=== PATIENT | female | born 1960 | race Caucasian/White ===

== ENCOUNTER 2017-02-25 10:04 | Emergency (ER) | payer OTHER ==
[~2017-02-25] VITALS: Ht 157.5 cm; Wt 50.0 kg
[2017-02-25 10:11] VITALS: Ht 157.5 cm; Wt 50.0 kg
[2017-02-25 11:42] LABS: URINE BLOOD (Dip) POC Negative (NEGATIVE)
[2017-02-25 11:48] LABS: ADD SCAN DIFF NO
[2017-02-25 11:52] LABS: BASOPHILS % 0.5 % (0.0-2.0); EOSINOPHILS # 0.1 10^3/ul (0.0-0.5); EOSINOPHILS % 1.7 % (0.0-7.0); HEMATOCRIT 45.9 % (37.0-47.0); HEMOGLOBIN 15.6 g/dl (12.0-16.0); LYMPHOCYTES # 1.4 10^3/ul (0.8-2.9); LYMPHOCYTES % 33.2 % (15.0-51.0); MEAN CORPUSCULAR VOLUME 91.3 fl (82.0-101.0); MEAN PLATELET VOLUME 9.7 fl (7.4-10.4); MONOCYTE # 0.5 10^3/ul (0.3-0.9); MONOCYTES % 12.1 % (0.0-11.0); NEUTROPHIL # 2.2 10^3/ul (1.6-7.5); PLATELET COUNT 251 10^3/UL (140-415); RED BLOOD COUNT 5.03 10^6/ul (4.20-5.40); WHITE BLOOD COUNT 4.1 10^3/ul (4.8-10.8)
[2017-02-25 12:15] LABS: ALBUMIN 4.6 g/dl (3.3-4.9); ALBUMIN/GLOBULIN RATIO 1.39; BILIRUBIN,INDIRECT 0.5 mg/dl (0-1.1); BILIRUBIN,TOTAL 0.5 mg/dl (0.2-1.3); CALCIUM 9.8 mg/dl (8.4-10.2); CREATININE 0.83 mg/dl (0.44-1.00); POTASSIUM 5.2 mmol/L (3.5-5.1); TOTAL PROTEIN 7.9 g/dl (6.1-8.1)
[2017-02-25] MEDS ORDERED: CIPR500T4 PO (12:32)
[2017-02-25] MEDS ORDERED: METR500T PO (12:32)
[2017-02-25] MEDS ORDERED: BISM262O23 PO (12:32)
--- NOTE | 2017-02-25 12:38 | ERD ---
ER Documentation Chief Complaint Date/Time DATE: 02/25/17 TIME: 12:35 Chief Complaint diarrhea x 6 weeks , denies and abd pain , no vomiting HPI This 56-year-old female complains of diarrhea for last 6 weeks it is watery. She denies foreign travel, fevers, blood, mucus. She denies abdominal pain, vomiting, urinary complaints ROS All systems reviewed and are negative except as per history of present illness. Medications Home Meds Active Scripts Bismuth Subsalicylate* (Pepto-Bismol*) 262 Mg/15 Ml Oral.susp, 15 ML PO Q3H Y for 5 for 5 Days, ML Prov:TOMER DAHL MD 02/25/17 Metronidazole* (Flagyl*) 500 Mg Tablet, 500 MG PO BID for 7 Days, TAB Prov:TOMER DAHL MD 02/25/17 Ciprofloxacin Hcl* (Ciprofloxacin Hcl*) 500 Mg Tablet, 500 MG PO BID for 7 Days , TAB Prov:TOMER DAHL MD 02/25/17 PMhx/Soc Medical and Surgical Hx: pt denies Medical Hx, pt denies Surgical Hx Hx Alcohol Use: No Hx Substance Use: No Hx Tobacco Use: No Physical Exam Vitals Vital Signs Date Time Temp Pulse Resp B/P Pulse Ox O2 Delivery O2 Flow Rate FiO2 02/25/17 10:11 98.2 73 18 138/81 99 Physical Exam Const: [] Alert, [id number] per Head: Atraumatic Eyes: Normal Conjunctiva ENT: Normal External Ears, Nose and Mouth. Neck: Full range of motion..~ No meningismus. Resp: Clear to auscultation bilaterally Cardio: Regular rate and rhythm, no murmurs Abd: Soft, non tender, non distended. Normal bowel sounds Skin: No petechiae or rashes Back: No midline or flank tenderness Ext: No cyanosis, or edema Neur: Awake and alert Psych: Normal Mood and Affect Result Diagram: 02/25/17 1143 02/25/17 1143 Results 24 hrs Laboratory Tests Test 02/25/17 11:43 White Blood Count 4.110^3/ul Red Blood Count 5.0310^6/ul Hemoglobin 15.6g/dl Hematocrit 45.9% Mean Corpuscular Volume 91.3fl Mean Corpuscular Hemoglobin 31.0pg Mean Corpuscular Hemoglobin Concent 34.0g/dl Red Cell Distribution Width 13.0% Platelet Count 43479^3/UL Mean Platelet Volume 9.7fl Neutrophils % 52.0% Lymphocytes % 33.2% Monocytes % 12.1% Eosinophils % 1.7% Basophils % 0.5% Nucleated Red Blood Cells % 0.0/100WBC Neutrophils # 2.210^3/ul Lymphocytes # 1.410^3/ul Monocytes # 0.510^3/ul Eosinophils # 0.110^3/ul Basophils # 0.010^3/ul Nucleated Red Blood Cells # 0.010^3/ul Bedside Urine pH (LAB) 6.5 Bedside Urine Protein (LAB) Trace Bedside Urine Glucose (UA) Negative Bedside Urine Ketones (LAB) Negative Bedside Urine Blood Negative Bedside Urine Nitrite (LAB) Negative Bedside Urine Leukocyte Esterase (L Negative Sodium Level 142mmol/L Potassium Level 5.2mmol/L Chloride Level 103mmol/L Carbon Dioxide Level 31mmol/L Anion Gap 13 Blood Urea Nitrogen 13mg/dl Creatinine 0.83mg/dl Glucose Level 92mg/dl Calcium Level 9.8mg/dl Total Bilirubin 0.5mg/dl Direct Bilirubin 0.00mg/dl Indirect Bilirubin 0.5mg/dl Aspartate Amino Transf (AST/SGOT) 31IU/L Alanine Aminotransferase (ALT/SGPT) 44IU/L Alkaline Phosphatase 124IU/L Total Protein 7.9g/dl Albumin 4.6g/dl Globulin 3.30g/dl Albumin/Globulin Ratio 1.39 Procedures/MDM HCG is negative. Urine is negative for leukocytes, nitrites, blood, glucose. CBC shows a glucose of 4.1 and 5 monocytes. Calcium is 5.2, CMP otherwise normal. Patient stable, amatory [id number] throughout the ED course. Patient presents with diarrhea of uncertain etiology for 6 weeks without evidence of abdominal pain, obstruction, sepsis. She will be treated with Cipro and Flagyl and instructions to follow-up with primary doctor and further study for persistent symptoms. Otherwise for primary care and return precautions as necessary. Hypokalemia is mild and appears to likely be artifactual but follow-up is advised with primary doctor. Departure Diagnosis: Primary Impression: Diarrhea Diarrhea type: unspecified type Qualified Code: R19.7 - Diarrhea, unspecified type Condition: Stable Patient Instructions: Treating Diarrhea [facility] Usted se corrales hecho un examen mdico de control que le indica que no est en everett condicin que requiera tratamiento urgente en el Departamento de Emergencia. Un estudio ms profundo y el tratamiento de morrissey condicin pueden esperar sin ningn riesgo hasta que usted sea atendida/o en el consultorio de morrissey mdico o everett cl laura. Es responsabilidad suya arreglar everett jeffrey para el seguimiento del karyn. MANEJO DE CONDICIONES NO URGENTES EN EL FUTURO 1) Si usted tiene un mdico de atencin primaria: Usted debera llamar a morrissey mdico de atencin primaria antes de venir al departamento de emergencia. Despus de las horas de consultorio, morrissey doctor o morrissey asociado/a est disponible por telfono. El mdico o enfermero de arturo en el servicio telefnico puede asesorarle por bee medio para atender el problema, o karyn contrario se puede programar everett jeffrey. 2) Si usted no tiene un mdico de atencin primaria: Llame al mdico o clnica de referencia que aparece abajo tima las horas de consultorio para hacer everett jeffrey para que le vean. CLINICAS: [facility] [phone] [id number] [facility] [phone] [facility] [phone] [address] [facility] [facility] [phone] [address] [facility]. [facility] [phone] [address] [facility]. [phone] [address] Additional Instructions: EXAMINES NORMAL. VAMOS A TRATAR PARA INFECCION. TOMER DAHL MD Feb 25, 2017 12:38
== END 2017-02-25 13:46 | disposition home or self-care (01) ==
LOC: FTE 10:04
DX: R19.7 Diarrhea, unspecified (principal)
CPT/HCPCS: 36415; 80053; 81003; 85025; Z7502; 99284